=== PATIENT | female | born 1955 | race American Indian/Alaskan Native ===

== ENCOUNTER 2018-08-30 00:04 | Emergency (ER) | payer OTHER ==
--- NOTE | 2018-08-30 06:04 | Emergency Department Report ---
ED ENT HPI - General Chief complaint: Sore Throat Stated complaint: THROAT PAIN Time Seen by Provider: 08/30/18 05:16 Source: patient Mode of arrival: Ambulatory Limitations: No Limitations - History of Present Illness Initial comments: Pt is a 62 yo female who presents to the ED with c/o sore throat that began two days ago. She has associated pain with swallowing. She is able to swallow secretions without difficulty. She denies any fever or N/V/D. She denies any sick contacts. The patient denies any dental pain. She states she has a hx of HTN and did not take her blood pressure medication due to pain with swallowing. - Related Data Previous Rx's Medication Instructions Recorded Last Taken Type Lisinopril/Hydrochlorothiazide 1 tab PO QDAY #90 tablet 08/14/13 05/26/15 Rx [Zestoretic 20-25 mg] Metformin HCl [Fortamet ER] 0.5 tab PO BID #90 tab 08/14/13 05/26/15 Rx Metoprolol [Lopressor TAB] 1 tab PO BID #180 tablet 08/14/13 05/26/15 Rx EPINEPHrine (NF) [Epipen (Nf)] 0.3 mg IM ONCE #1 syringekit 05/26/15 Unknown Rx diphenhydrAMINE [Benadryl CAP] 50 mg PO Q8HR PRN #20 capsule 05/26/15 Unknown Rx Lidocaine Viscous 2% 15 ml MM BID PRN #100 ml 08/30/18 Unknown Rx Penicillin Vk [Veetids TAB] 500 mg PO BID 10 Days #40 tablet 08/30/18 Unknown Rx Allergies Allergy/AdvReac Type Severity Reaction Status Date / Time No Known Allergies Allergy Verified 08/14/13 14:11 ED Dental HPI - General Chief complaint: Sore Throat Stated complaint: THROAT PAIN Time Seen by Provider: 08/30/18 05:16 Source: patient Mode of arrival: Ambulatory Limitations: No Limitations - Related Data Previous Rx's Medication Instructions Recorded Last Taken Type Lisinopril/Hydrochlorothiazide 1 tab PO QDAY #90 tablet 08/14/13 05/26/15 Rx [Zestoretic 20-25 mg] Metformin HCl [Fortamet ER] 0.5 tab PO BID #90 tab 08/14/13 05/26/15 Rx Metoprolol [Lopressor TAB] 1 tab PO BID #180 tablet 08/14/13 05/26/15 Rx EPINEPHrine (NF) [Epipen (Nf)] 0.3 mg IM ONCE #1 syringekit 05/26/15 Unknown Rx diphenhydrAMINE [Benadryl CAP] 50 mg PO Q8HR PRN #20 capsule 05/26/15 Unknown Rx Lidocaine Viscous 2% 15 ml MM BID PRN #100 ml 08/30/18 Unknown Rx Penicillin Vk [Veetids TAB] 500 mg PO BID 10 Days #40 tablet 08/30/18 Unknown Rx Allergies Allergy/AdvReac Type Severity Reaction Status Date / Time No Known Allergies Allergy Verified 08/14/13 14:11 ED Review of Systems ROS: Stated complaint: THROAT PAIN Other details as noted in HPI Comment: All other systems reviewed and negative ED Past Medical Hx - Past Medical History Previous Medical History?: Yes Hx Hypertension: Yes Hx Diabetes: Yes Additional medical history: Gallstones - Surgical History Past Surgical History?: Yes Additional Surgical History: Bilateral tubal ligation - Social History Smoking Status: Never Smoker Substance Use Type: Alcohol - Medications Home Medications: Home Medications Medication Instructions Recorded Confirmed Last Taken Type Lisinopril/Hydrochlorothiazide 1 tab PO QDAY #90 tablet 08/14/13 05/26/15 Rx [Zestoretic 20-25 mg] Metformin HCl [Fortamet ER] 0.5 tab PO BID #90 tab 08/14/13 05/26/15 05/26/15 Rx Metoprolol [Lopressor TAB] 1 tab PO BID #180 tablet 08/14/13 05/26/15 05/26/15 Rx EPINEPHrine (NF) [Epipen (Nf)] 0.3 mg IM ONCE #1 syringekit 05/26/15 Unknown Rx diphenhydrAMINE [Benadryl CAP] 50 mg PO Q8HR PRN #20 capsule 05/26/15 Unknown Rx Lidocaine Viscous 2% 15 ml MM BID PRN #100 ml 08/30/18 Unknown Rx Penicillin Vk [Veetids TAB] 500 mg PO BID 10 Days #40 tablet 08/30/18 Unknown Rx ED Physical Exam - General Limitations: No Limitations General appearance: alert, in no apparent distress - Head Head exam: Present: atraumatic, normocephalic - Eye Eye exam: Present: normal appearance, PERRL - ENT ENT exam: Present: mucous membranes moist, other (posterior oropharynx erythema, tonsillar hypertrophy bilaterally, exudates present on the left tonsil, uvula is midline, no uvula edema) - Respiratory Respiratory exam: Present: normal lung sounds bilaterally. Absent: respiratory distress, wheezes, rales, rhonchi, stridor, chest wall tenderness, accessory muscle use, decreased breath sounds, prolonged expiratory - Cardiovascular Cardiovascular Exam: Present: regular rate, normal rhythm, normal heart sounds. Absent: systolic murmur, diastolic murmur, rubs, gallop - Neurological Exam Neurological exam: Present: alert, oriented X3 - Psychiatric Psychiatric exam: Present: normal affect, normal mood - Skin Skin exam: Present: warm, dry, intact ED Course Vital Signs 08/30/18 08/30/18 00:05 07:05 Temperature 99.0 F Pulse Rate 90 88 Respiratory 18 16 Rate Blood Pressure 177/102 Blood Pressure 158/86 [Right] O2 Sat by Pulse 99 100 Oximetry ED Medical Decision Making - Lab Data Lab Results 08/30/18 Range/Units Unknown Group A Strep Rapid Negative (Negative) Vital Signs 08/30/18 08/30/18 00:05 07:05 Temperature 99.0 F Pulse Rate 90 88 Respiratory 18 16 Rate Blood Pressure 177/102 Blood Pressure 158/86 [Right] O2 Sat by Pulse 99 100 Oximetry - Medical Decision Making Pt is a 62 yo female who presents to the ED with c/o sore throat that began two days ago. She has associated pain with swallowing. She is able to swallow secretions without difficulty. She denies any fever or N/V/D. She denies any sick contacts. The patient denies any dental pain. She states she has a hx of HTN and did not take her blood pressure medication due to pain with swallowing. Examination consistent with tonsillitis. Rapid strep is negative. Will place pt on abx. Advised to take medications as prescribed. Advised pt to follow up with PCP in the next 2-3 days. Discussed with pt elevation in blood pressure and that she needed to take her home blood pressure medication. Advised to return to the ED for any new or worsening symptoms. Critical care attestation.: If time is entered above; I have spent that time in minutes in the direct care of this critically ill patient, excluding procedure time. ED Disposition Clinical Impression: Tonsillitis Disposition: TO HOME OR SELFCARE Is pt being admited?: No Does the pt Need Aspirin: No Condition: Stable Instructions: Tonsillitis (ED) Additional Instructions: Please take all medications as prescribed. Follow up with primary care doctor in the next 2-3 days. Your blood pressure is elevated in the emergency department you need to take your home blood pressure medication. Return to the emergency department for any new or worsening symptoms. Prescriptions: Lidocaine Viscous 2% 15 ml MM BID PRN #100 ml PRN Reason: Sore Throat Penicillin Vk [Veetids TAB] 500 mg PO BID 10 Days #40 tablet Referrals: MARU CARRION MD [Primary Care Provider] - 2-3 Days Time of Disposition: 06:49 Print Language: DANISH
[2018-08-30 07:06] VITALS: BP 158/86
== END 2018-08-30 07:04 | disposition home or self-care (01) ==
LOC: ED 00:04
DX: J03.90 Acute tonsillitis, unspecified (principal); I10 Essential (primary) hypertension; E11.9 Type 2 diabetes mellitus without complications; Z98.51 Tubal ligation status
CPT/HCPCS: 87116; 87430; 99283